=== PATIENT | male | born 2000 | race African-American/Black ===

== ENCOUNTER 2022-10-05 02:45 | Emergency (ER) | payer MEDICAID ==
[~2022-10-05] VITALS: Ht 190.5 cm; Wt 113.0 kg
[2022-10-05 03:15] VITALS: BP 151/90
[2022-10-05] MEDS ORDERED: KETOROLAC TROMETH 30 MG/ML 1ML VIAL IM ONE (04:45)
== END 2022-10-05 07:55 | disposition home or self-care (01) ==
LOC: ER 02:45
DX: S63.501A Unspecified sprain of right wrist, initial encounter (principal); M25.531 Pain in right wrist; Z98.890 Other specified postprocedural states; X58.XXXA Exposure to other specified factors, initial encounter; Y93.89 Activity, other specified; Y92.89 Other specified places as the place of occurrence of the external cause; Y99.8 Other external cause status
CPT/HCPCS: 96372; 99283; J1885